=== PATIENT | male | born 1965 | race Caucasian/White ===

== ENCOUNTER → 2018-02-05 09:13 | Outpatient (CLI) | payer MEDICARE, MEDICAID, SELFPAY ==
[2018-02-05 11:28] LABS: Hemoglobin A1C 7.1 % (4.5-6.2)
== END ==
PROVIDERS: PCP Family Medicine; Visit Provider Family Medicine
DX: E11.9 Type 2 diabetes mellitus without complications (principal)
CPT/HCPCS: 36415; 83036

== ENCOUNTER 2018-05-11 10:08 | Outpatient (CLI) | payer MEDICARE, MEDICAID, SELFPAY ==
[2018-05-11 12:18] LABS: Hemoglobin A1C 6.7 % (4.5-6.2)
[2018-05-11 13:41] LABS: COMMENT (LAB VIEW ONLY) 49.01 mg/dL; Microalb ug/mg Crea 3.1 ug/mg Cr
== END 2018-05-11 10:28 ==
PROVIDERS: PCP Family Medicine; Visit Provider Family Medicine
DX: E11.9 Type 2 diabetes mellitus without complications (principal)
CPT/HCPCS: 36415; 82043; 82570; 83036

== ENCOUNTER 2018-11-16 10:49 | Outpatient (CLI) | payer MEDICARE, MEDICAID, SELFPAY | END 2018-11-16 11:09 | PROVIDERS: PCP Family Medicine; Visit Provider Family Medicine | DX: E11.9 Type 2 diabetes mellitus without complications (principal) | CPT/HCPCS: 36415; 83036 ==

== ENCOUNTER 2019-02-09 09:24 | Outpatient (CLI) | payer MEDICARE, MEDICAID, SELFPAY ==
[2019-02-09 10:58] LABS: Hemoglobin A1C 6.8 % (4.5-6.2)
== END 2019-02-09 09:44 ==
PROVIDERS: PCP Family Medicine; Visit Provider Family Medicine
DX: E11.9 Type 2 diabetes mellitus without complications (principal)
CPT/HCPCS: 36415; 83036

== ENCOUNTER 2019-05-13 09:04 | Outpatient (CLI) | payer MEDICARE, MEDICAID, SELFPAY ==
[2019-05-13 12:59] LABS: Anion Gap 9.3 mmol/L (3-11); BUN 12 mg/dL (7-18); CO2 32.7 mmol/L (21.0-32.0); CREATININE 0.79 mg/dL (0.70-1.30); Calcium 9.7 mg/dL (8.5-10.1); Calculated LDL 86 mg/dL; Chloride 104 mmol/L (98-107); Cholesterol 160 mg/dL (50-200); Glucose 152 mg/dL (70-100); HDL Cholesterol 58 mg/dL (40-60); Potassium 4.4 mmol/L (3.5-5.1); Sodium 146 mmol/L (136-145); Triglyceride 83 mg/dL (30-150)
[2019-05-13 14:14] LABS: Hemoglobin A1C 7.8 % (4.5-6.2)
== END 2019-05-13 09:24 ==
PROVIDERS: PCP Family Medicine; Visit Provider Family Medicine
DX: E11.9 Type 2 diabetes mellitus without complications (principal); I10 Essential (primary) hypertension
CPT/HCPCS: 36415; 80048; 80061; 83036

== ENCOUNTER 2020-06-26 03:03 | Outpatient (CLI) | payer MEDICARE, MEDICAID, SELFPAY ==
[2020-06-26 09:49] LABS: HCT 44.4 % (40.0-50.0); MCHC 33.8 % (32.0-36.0); MCV 97.8 fL (80-95); MPV 9.4 fL (8.0-11.0); Platelet Count 215 10^3/uL (130-400); RBC 4.54 10^6/uL (4.36-5.78); RDW 11.8 % (11.8-14.1); RDW-SD 42.6 fL
[2020-06-26 10:01] LABS: Hemoglobin A1C 6.6 % (<5.7)
[2020-06-26 10:25] LABS: ALT 28 U/L (16-63); AST 21 U/L (15-37); Albumin 3.6 g/dL (3.4-5.0); Alkaline Phosphatase 73 U/L (46-116); Anion Gap 6.8 mmol/L (3-11); BUN 15 mg/dL (7-18); Bilirubin, Total 1.5 mg/dL (0.2-1.0); CO2 29.2 mmol/L (21.0-32.0); CREATININE 0.82 mg/dL (0.70-1.30); Calcium 8.9 mg/dL (8.5-10.1); Chloride 104 mmol/L (98-107); Glucose 110 mg/dL (74-106); Potassium 4.4 mmol/L (3.5-5.1); Sodium 140 mmol/L (136-145); Total Protein 6.9 g/dL (6.4-8.2)
[2020-06-26 10:29] LABS: COMMENT (LAB VIEW ONLY) 113.82 mg/dL; Microalb ug/mg Crea 4.5 ug/mg Cr
== END 2020-06-26 03:23 ==
PROVIDERS: PCP Family Medicine; Visit Provider Family Medicine
DX: E11.9 Type 2 diabetes mellitus without complications (principal); Z79.4 Long term (current) use of insulin; F88 Other disorders of psychological development
CPT/HCPCS: 36415; 80053; 85027; 82043; 82570; 83036

== ENCOUNTER 2021-09-06 02:38 | Outpatient (CLI) | payer MEDICARE, MEDICAID, SELFPAY ==
[2021-09-06 08:44] LABS: ALT 24 U/L (16-63); AST 31 U/L (15-37); Albumin 3.4 g/dL (3.4-5.0); Alkaline Phosphatase 84 U/L (46-116); BUN 14 mg/dL (7-18); CREATININE 0.8 mg/dL (0.70-1.30); Calcium 8.8 mg/dL (8.5-10.1); Calculated LDL 52 mg/dL (<100); Chloride 106 mmol/L (98-107); Cholesterol 112 mg/dL (<200); Glucose 90 mg/dL (74-106); HDL Cholesterol 54 mg/dL (40-60); Potassium 4.7 mmol/L (3.5-5.1); Sodium 141 mmol/L (136-145); Total Protein 6.6 g/dL (6.4-8.2); Triglyceride 30 mg/dL (<150)
[2021-09-06 19:51] LABS: PSA, Screening 0.4 ng/mL (0.0-3.5)
== END 2021-09-06 02:39 | disposition home or self-care (01) ==
LOC: LBO 02:38
PROVIDERS: PCP Nurse Practitioner Family; Visit Provider Nurse Practitioner Family
DX: E11.9 Type 2 diabetes mellitus without complications (principal); Z79.4 Long term (current) use of insulin; R39.15 Urgency of urination; Z12.5 Encounter for screening for malignant neoplasm of prostate
CPT/HCPCS: 36415; 80053; 80061; 84153

== ENCOUNTER → 2022-09-05 14:58 | Outpatient (BNVA) | payer MEDICARE, MEDICAID, SELFPAY | PROVIDERS: PCP Nurse Practitioner Family; Referring Provider Nurse Practitioner Family; Visit Provider Physical Therapy Assistant | DX: Z12.11 Encounter for screening for malignant neoplasm of colon (principal); Z86.010 Personal history of colon polyps ==

== ENCOUNTER 2022-09-26 09:20 | Day surgery (SDC) | payer MEDICARE, MEDICAID, SELFPAY ==
--- NOTE | 2022-09-25 20:59 | W.PM.DSUDISC ---
Date of service: 09/26/22 Time of Service: 13:10 Discharge Plan Disposition Patient Disposition: Home Condition: Good Discharge Details Reason For Visit: Colonoscopy Attending Provider: Christopher Begum Primary Care Provider: Silvino Esparza Home Meds and New Rx's Prescriptions: Continued (DME) lancets 28 gauge misc 1 ea Miscellaneous BID Qty: 200 4RF Rx Instructions: One bid Free style lancets. DX: E11.9 metformin 500 mg tablet 1,000 mg PO BID Qty: 360 4RF multivitamin 1 EACH tablet 1 ea PO DAILY cyanocobalamin (vitamin B-12) [Vitamin B-12] 1,000 MCG tablet 1 tab PO DAILY calcium carbonate [Caltrate 600] 600 MG tablet 1 tab PO DAILY ascorbic acid (vitamin C) [Vitamin C] 500 MG tablet 1 tab PO DAILY vitamins A and D 1 EACH capsule 1 cap PO DAILY cholecalciferol (vitamin D3) 1,000 UNIT capsule 1 cap PO DAILY (DME) blood-glucose meter 1 EACH misc 1 ea Miscellaneous DAILY Qty: 1 Rx Instructions: Freestyle Lite meter DIAGNOSIS CODE 250.02 (DME) blood-glucose meter [FreeStyle [place]] Kit See Rx Instructions .ROUTE .MEDSUPPLY Qty: 1 0RF Rx Instructions: Check blood sugar daily (DME) Blood Glucose Test Strip 1 ea Miscellaneous BID Qty: 200 4RF Rx Instructions: FREESTYLE LITE TEST STRIPS One BID (DME) pen needle, diabetic 29 gauge x 1/2 needle 1 ea Miscellaneous DAILY Qty: 100 4RF Rx Instructions: One SC Daily [place] needles . E11.9 fluoxetine [Prozac] 40 mg capsule 40 mg PO DAILY Qty: 90 4RF atorvastatin 20 mg tablet 20 mg PO DAILY Qty: 90 4RF insulin glargine [Lantus Solostar U-100 Insulin] 100 unit/mL (3 mL) insulin pen 70 unit subcut QAM Qty: 15 4RF Discontinued bisacodyl [Dulcolax (bisacodyl)] 5 mg tablet,delayed release (DR/EC) 5 mg PO ONCE Qty: 4 0RF Rx Instructions: Take according to provider's instructions for colonoscopy prep. polyethylene glycol 3350 17 gram/dose powder 17 g PO ONCE Qty: 238 0RF Rx Instructions: To be taken as directed by prescriber's office for colonoscopy prep. Discharge Instructions Instructions: Colorectal Polyps (GEN) Additional Instructions: Tony, we were able to complete your colonoscopy today without any difficulty. Like we talked about in the recovery unit, there were 2 discrete colon polyps that I removed completely. There was also an area that has some more carpeted appearance that I was not able to remove with the colonoscope. However, I did take some biopsies of this. Once I have the pathology report on all of the biopsies and polyps, I will be in touch with regards to what to do next. 1. If tolerated, consume a soft, low fiber diet for 1-2 days. 2[address] Do not drive, drink alcohol, operate machinery, make critical decisions, or do activities that require coordination or balance for 24 hours. 3. Because air was put into your colon during the procedure, expelling air from your rectum (passing gas or farting) is normal. 4. You may not have a bowel movement for 1-3 days because of the colonoscopy prep. This is normal. 5. Go directly to the emergency room if you notice any of the following: Develop chills (warm to touch), or if you have a thermometer and your temperature is above 101 Difficulty breathing or difficultly swallowing Persistent vomiting Severe abdominal pain, other than gas cramps Severe chest pain Black, tarry stools Any bleeding ? exceeding one tablespoon 6. Call your physician if the site where your intravenous was started becomes red, swollen, painful, and warm to touch. 7. Your physician has reviewed your pre-procedure medications. Please continue to take those medications as previously ordered. You will be given specific information/education regarding any changes to your medications before leaving. Activity:: Activity as Tolerated Diet:: As Tolerated Discharge Orders Discharge Orders: Discharge Order (Routine); Ordered 09/25/22 Ordered By: Christopher Begum DS: Diagnosis Discharge Diagnosis (1) Screening for colon cancer: Status: Acute Asessment and Plan: Follow-up with pathology results
--- NOTE | 2022-09-25 21:01 | COLE_ITS ---
Date of service: 09/26/22 Time of Service: 12:42 Colonoscopy Report Date of procedure: 09/26/22 Pre-op diagnosis general: Screening colonoscopy Post-op diagnosis procedure note: other (Cecal polyps) Procedure: Colonoscopy with polypectomy Surgeon: Christopher Begum Anesthesia Type: General:No Airway Estimated blood loss (mL): 15 Pathology: other (Cecal polyps x2, cecal biopsies) Complications: None Disposition: same day Indications: Tony is a 57 year old man who had a high risk adenoma on a previous colonsoscopy. He is her in follow up for another screening colonoscopy Prep: Miralax/Dulcolax Procedure Start Time: 11:52 Procedure End Time: 12:26 Retraction Time: 16 Findings: Cecal polyps x2, polypoid tissue along the ileocecal valve Procedure Description: After the induction of monitored anesthetic care, and with the patient in left lateral decubitus position, I began by performing an external anorectal exam.? Perineum and skin were normal, as was the anal verge.? There was no not evidence of external hemorrhoids.? Next, I performed a digital rectal exam.? I did appreciate any abnormal findings.? Next, I advanced a colonoscope into the rectal vault.? I performed retroflexion.? This appeared normal.? Using insu fflation, I then advanced the colonoscope beyond the rectal folds and into the sigmoid colon before advancing towards the cecum.? The quality of the prep was adequate.? The scope was noted to be in the cecum by identification of the ileocecal valve and appendiceal orifice.? There were 2 cecal polyps that were sessile in nature. One was approximately 0.75 cm in size. This was removed with cold snare. There was minimal bleeding. The other was about 0.25 cm. This was removed with cold forceps polypectomy. I then began withdrawing the colonoscope using repeated irrigation as necessary for full evaluation of the colonic mucosa. There was also a slightly raised, sessile appearing polypoid tissue along the ileocecal valve. I would estimated about 1.5 to 2 cm in its longest dimension. Based on his geometry and location, I not capable of removing this colonoscopically. I did perform cold forceps biopsy of the area. Once the scope was withdrawn to the level of the rectum, great care was taken to examine portions of the rectal folds.? Finally, the scope was withdrawn and the patient was brought to the same-day surgery recovery unit as the anesthetic wore off. ?The findings and instructions were shared with the patient prior to discharge. In simple language, I explained that 2 of the polyps were removed completely, but I was uncomfortable attempting removal of the larger polypoid tissue colonoscopically. I will follow-up on the pathology. If this is in fact a polyp, I would recommend referral to an advanced endoscopist for attempted colonoscopic retrieval, versus a right hemicolectomy. Pathology is more consistent with benign lymphoid tissue, I think this could be surveilled with colonoscopy.
[2022-09-26 10:17] VITALS: BP 118/57; PULSE 64; RESP 20; TEMP 36.3; O2SAT 100
[2022-09-26] MEDS: Lactated Ringers 1,000 ML 80 ML IV (10:45)
--- NOTE | 2022-09-26 11:30 | W.ANESPRE ---
General Info Date of Service Date Performed: 09/26/22 Height: 5 ft 7 in Weight: 103 kg Body Mass Index (BMI): 35.5 Surgical Procedure: Operation Date: 09/26/22 10:35 Proposed Procedure Side Surgeon jon Begum MD Meds Allergies and Home Medications Allergies Allergy/AdvReac Type Severity Reaction Status Date / Time haloperidol AdvReac Intermediate NAUSEA AND Verified 09/26/22 10:31 VOMITING Home Medication Medication Instructions Recorded ascorbic acid (vitamin C) 500 mg 1 tab PO DAILY 11/02/12 tablet (Vitamin C) calcium carbonate 600 mg calcium 1 tab PO DAILY 11/02/12 (1,500 mg) tablet (Caltrate 600) cholecalciferol (vitamin D3) 25 1 cap PO DAILY 11/02/12 mcg (1,000 unit) capsule cyanocobalamin (vitamin B-12) 1 tab PO DAILY 11/02/12 1,000 mcg tablet (Vitamin B-12) multivitamin 1 ea PO DAILY 11/02/12 vitamins A and D 1 cap PO DAILY 11/02/12 blood-glucose meter #1 ea 08/02/13 blood-glucose meter (FreeStyle #1 ea 12/27/19 [place] kit) blood sugar diagnostic (Blood #200 strips 10/29/21 Glucose Test strips) pen needle, diabetic 29 gauge x #100 ea 11/29/21 1/2 fluoxetine 40 mg capsule (Prozac) 40 mg PO DAILY #90 tab-caps 12/17/21 metformin 500 mg tablet 1,000 mg PO BID #360 tab-caps 01/03/22 lancets 28 gauge #200 ea 04/05/22 atorvastatin 20 mg tablet 20 mg PO DAILY #90 tabs 09/02/22 insulin glargine 100 unit/mL (3 70 unit (0.7 mL) subcut QAM 09/16/22 mL) subcutaneous pen (Lantus Diabetes mellitus #15 mL Solostar U-100 Insulin) Current Visit Medications: Current Medications Generic Name Dose Route Start Last Admin Trade Name Freq PRN Reason Stop Dose Admin Hyoscyamine Sulfate 0.125 mg 09/25/22 21:02 Hyoscyamine 0.125 Mg Sl/Oral/Chew SL DIRECTED PRN Ringer's Solution 1,000 mls @ 80 mls/hr 09/26/22 06:00 09/26/22 10:45 IV 10/25/22 23:59 80 mls/hr INFUSION CYNTHIA Administration IV Miscellaneous Supplies 1 each 09/26/22 06:00 Iv Access IV 10/25/22 23:59 DIRECTED CYNTHIA Ondansetron HCl 4 mg 09/25/22 21:02 Ondansetron 4 Mg/2 Ml Vial IVP Q4H PRN PRN Nausea / Vomiting Sodium Chloride 0 ml 09/26/22 06:00 Normal Saline Flush 10 Ml Syr IV 10/25/22 23:59 PRN PRN Sodium Chloride 0 ml 09/26/22 06:00 Normal Saline 10 Ml Vial IJ 10/25/22 23:59 DIRECTED PRN Sterile Water 0 ml 09/26/22 06:00 Water,Injection,Sterile 10 Ml Vial IJ 10/25/22 23:59 DIRECTED PRN PFSH Active Problems Active Problems: Problem Status Onset Code Screening for colon cancer Z12.11 COVID U07.1 Cognitive developmental delay Overgrown toenails L60.2 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 sister: No seizures in 30+ years Surgical History Surgical History colonoscopy (01/15/16) Tobacco Smoking/Tobacco Use Status: Never Passive smoking exposure: Yes Second hand exposure: Yes Alcohol Alcohol Intake: never Substance Use Substance use: Never Substance use type: does not use Vital Signs and Lab Results Vital Signs Most Recent Vital Signs in EMR: Most Recent Vital Signs Temp Pulse Resp BP Pulse Ox 36.3 C L 64 20 118/57 L 100 09/26/22 10:17 09/26/22 10:17 09/26/22 10:17 09/26/22 10:17 09/26/22 10:17 Point of Care Results Point of Care Results: Finger Stick Blood Glucose 95 09/26/22 10:35 Lab Results Blood Type / Crossmatch: No Data to Display Complete Blood Count: No Data to Display Complete Metabolic Panel: No Data to Display Liver Function Panel: No Data to Display Coagulation Panel: No Data to Display Cardiac Panel: No Data to Display Arterial Blood Gas: No Data to Display Venous Blood Gas: No Data to Display Pancreas Panel: No Data to Display Thyroid Panel: No Data to Display Infectious Disease: No Data to Display Blood Cultures: No Data to Display Toxicology Panel: No Data to Display Anesthesia Assessment and Plan Anesthesia History Personal History: No History of Anesthesia Complications Family History: Family History Unknown Exercise Tolerance Exercise Tolerance: Metabolic Equivalents>4 Pertinent Negatives Pertinent Negatives: No Symptoms of GERD and No Major Cardiovascular Symptoms or Complaints Cardiac & Pulmonary Exam Cardiac Exam: Normal S1/S2 Heart Sounds Pulmonary Exam: Clear Bilateral Breath Sounds Implantable Cardiac Device Does patient have a Pacemaker or an ICD?: No Airway Exam Known Difficult Airway: No Mallampati Class: 2 Mouth Opening: Normal (> 3cm) Thyromental Distance: Greater than 3 cm Neck Range of Motion: Full ROM Neck Circumference: Normal Teeth Condition: Generalized Poor Dentition ASA Classification ASA Score: ASA 3 Emergency Case?: No NPO Status NPO Status: NPO Clears >2 hours, Solids >8 hours Anesthesia Plan Resuscitation Status: Full Code Anesthesia Technique: General Anesthesia Airway Planned: Natural Airway Monitors Used: Standard Monitors
[2022-09-26 11:32] VITALS: BMI 35.5
--- NOTE | 2022-09-26 12:05 | BOWEL_PTH ---
PATIENT: Tony Mcgarry LOC: [facility] U#:[id number] AGE/SX: 57/M ROOM: RE09/26/[address]: Christopher Begum MD : 1965 BED: DIS: 09/26/2022 SPEC #: [id number] RECD: 09/26/22 13:22 STATUS: BRET REQ #: [id number] CYNTHIA: 09/26/22 12:[address]: Christopher Begum DEPT: Surgical Specimen RECD BY: Neeta Aranda ENTERED: 09/26/22 13:23 SP TYPE: Bowel OTHR DR: Silvino Esparza, AYLEEN Tissues: 1 - BIOPSY BOWEL Procedures: GROSS AND MICRO LEVEL 4 Comments: [id number]
[2022-09-26 12:30] VITALS: BP 96/51; PULSE 62; RESP 16; TEMP 36.5; O2SAT 99
[2022-09-26 12:54] VITALS: BP 105/57; PULSE 68; RESP 18; TEMP 36.5; O2SAT 99
--- NOTE | 2022-09-26 13:11 | W.ANESPOSTOP ---
Postoperative Evaluation Date, Time and Location Date Performed: 09/26/22 Time Performed: 13:11 Patient Location: Day Surgery Unit Vital Signs Most Recent Imported Vital Signs: Most Recent Vital Signs Temp Pulse Resp BP Pulse Ox 36.5 C 68 18 105/57 L 99 09/26/22 12:54 09/26/22 12:54 09/26/22 12:54 09/26/22 12:54 09/26/22 12:54 Pain Score Most Recent Pain Score: Most Recent Pain Score Pain Level 0 09/26/22 12:54 Assessment Mental Status: Awake (Alert & Oriented to Patient Baseline) Airway and Respiratory Function: Patent airway with normal (patient baseline) respiratory exam Cardiovascular Function: Hemodynamically Stable Hydration Status: Adequately Hydrated Nausea & Vomiting: No Nausea or Vomiting Pain: Pt. Denies Any Pain Peripheral Nerve Block: Patient did not receive a nerve block
== END 2022-09-26 13:52 | disposition home or self-care (01) ==
PROVIDERS: PCP Nurse Practitioner Family; Visit Provider Surgery
PROC: 0DJD8ZZ Inspection of Lower Intestinal Tract, Via Natural or Artificial Opening Endoscopic (ICD-10-PCS; CPT 45378; principal; 2022-09-26 10:30)
DX: Z12.11 Encounter for screening for malignant neoplasm of colon (principal); K63.5 Polyp of colon; Z86.010 Personal history of colon polyps
CPT/HCPCS: 45380; 88305; J2704

== ENCOUNTER 2024-05-18 10:51 | Outpatient (CLI) | payer MEDICARE, MEDICAID, SELFPAY ==
--- NOTE | 2024-05-18 15:56 | DI.RAD_ITS ---
Exam(s) XR KNEE RT 3V AP,LAT,MIGUELINA EXAM: XR KNEE RT 3V AP,LAT,MIGUELINA CLINICAL HISTORY: Worsening rt knee pain, M25.561. TECHNIQUE: 2D digital imaging was performed. Three views. COMPARISON: No exams were available for comparison FINDINGS: Exam is limited by overlying clothing. BONES: No acute fracture is present. No bony destructive lesion is seen. JOINTS: The knee is normally aligned. Question of a joint effusion, the area is obscured by overlying clothing. Narrowing of the patellofemoral joint space and mild periarticular spurring. Femoral tib ial joint spaces are maintained. SOFT TISSUE: Normal. IMPRESSION: Degenerative changes of the patellofemoral joint. Question of joint effusion. DATA REPOSITORY: RADIATION DOSE DELIVERED:
== END 2024-05-18 11:11 ==
LOC: DI 10:52
PROVIDERS: PCP Nurse Practitioner Family; Visit Provider Nurse Practitioner Family
DX: M17.12 Unilateral primary osteoarthritis, left knee (principal)
CPT/HCPCS: 73562

== ENCOUNTER 2024-05-19 02:27 | Outpatient (CLI) | payer MEDICARE, MEDICAID, SELFPAY ==
[2024-05-19 12:24] LABS: Calculated LDL 46 mg/dL (<100); Cholesterol 104 mg/dL (<200); HDL Cholesterol 53 mg/dL (40-60); Triglyceride 25 mg/dL (<150)
[2024-05-19 12:27] LABS: Hemoglobin A1C 5.3 % (<5.7)
[2024-05-19 18:25] LABS: PSA, Screening 0.3 ng/mL (<=3.5)
== END 2024-05-19 02:28 | disposition home or self-care (01) ==
PROVIDERS: PCP Nurse Practitioner Family; Visit Provider Nurse Practitioner Family
DX: Z12.5 Encounter for screening for malignant neoplasm of prostate (principal); Z13.1 Encounter for screening for diabetes mellitus; E11.9 Type 2 diabetes mellitus without complications; Z79.4 Long term (current) use of insulin; E78.5 Hyperlipidemia, unspecified; Z13.220 Encounter for screening for lipoid disorders
CPT/HCPCS: 36415; 80061; 84153; 83036

== ENCOUNTER → 2024-06-14 14:40 | Outpatient (BNVA) | payer MEDICARE, MEDICAID, SELFPAY | PROVIDERS: PCP Nurse Practitioner Family; Referring Provider Nurse Practitioner Family | DX: M17.11 Unilateral primary osteoarthritis, right knee (principal) | CPT/HCPCS: 20610; 99213; J1010 ==

== ENCOUNTER 2024-08-28 13:07 | Emergency (ER) | payer MEDICARE, MEDICAID, SELFPAY ==
--- NOTE | 2024-08-28 13:15 | DI.CT_ITS ---
Exam(s) CT HEAD WO EXAM: CT HEAD WO CLINICAL HISTORY: Fall. TECHNIQUE: Imaging Protocol: Axial computed tomography images with coronal and sagittal reformatted images were created and reviewed COMPARISON: No exams were available for comparison FINDINGS: Ventricles and Extra axial spaces: Normal in size and morphology for the patient's age. Hemorrhage: None. Cerebral parenchyma: No evidence of acute infarct or mass. Midline shift: None. Brainstem/Cerebellum: Normal. Calvarium: Normal. Visualized Paranasal sinuses:Mucous retention at the right maxillary sinus. Mastoids: Clear. Soft Tissues: Unremarkable. ORBITS: Unremarkable. PITUITARY: Not enlarged. IMPRESSION: No acute intracranial process. RADIATION DOSE DELIVERED: Total DLP DATA REPOSITORY: All CT scans at this facility are submitted to the National Radiology Data Registry (NRDR) Dose Index Registry (DIR) with the [employer] ([employer]). RADIATION OPTIMIZATION: All CT scans at this facility use at least one of these dose optimization te chniques: automated exposure control; mA and/or kV adjustment per patient size (includes targeted exa ms where dose is matched to clinical indication); or iterative reconstruction.
[2024-08-28 13:22] VITALS: BP 121/66; PULSE 66; RESP 18; TEMP 36.9
--- NOTE | 2024-08-28 13:37 | DI.RAD_ITS ---
Exam(s) XR HAND LT COMPLETE EXAM: XR HAND LT COMPLETE CLINICAL HISTORY: Left hand pain. TECHNIQUE: 2D digital imaging was performed. Three views. COMPARISON: No exams were available for comparison FINDINGS: BONES: No acute fracture is present. No bony destructive lesion is seen. JOINTS: No dislocation present. Advanced degenerative changes at the 1st carpal metacarpal joint. [id number] degenerative changes of the interphalangeal joints of the fingers. SOFT TISSUE: Normal. IMPRESSION: Degenerative changes greatest of the 1st carpometacarpal joint. No acute abnormality. DATA REPOSITORY: RADIATION DOSE DELIVERED:
--- NOTE | 2024-08-28 13:38 | ED.GENADUL_ITS ---
Discharge Plan Disposition Patient Disposition: Home Discharge Details Clinical Impression: Hx of falling, Traumatic ecchymosis of forehead, Left hand pain Primary Care Provider: Silvino Esparza ED Provider: Cipriano Grigsby Home Meds and New Rx's Prescriptions: Continued (DME) lancets 28 gauge misc 1 ea Miscellaneous BID Qty: 200 4RF Rx Instructions: One bid Free style lancets. DX: E11.9 (DME) Blood Glucose Test Strip 1 ea Miscellaneous BID Qty: 200 4RF Rx Instructions: FREESTYLE LITE TEST STRIPS One BID multivitamin 1 EACH tablet 1 ea PO DAILY cyanocobalamin (vitamin B-12) [Vitamin B-12] 1,000 MCG tablet 1 tab PO DAILY calcium carbonate [Caltrate 600] 600 MG tablet 1 tab PO DAILY ascorbic acid (vitamin C) [Vitamin C] 500 MG tablet 1 tab PO DAILY vitamins A and D 1 EACH capsule 1 cap PO DAILY cholecalciferol (vitamin D3) 1,000 UNIT capsule 1 cap PO DAILY (DME) blood-glucose meter [FreeStyle [place]] Kit See Rx Instructions .ROUTE .MEDSUPPLY Qty: 1 0RF Rx Instructions: Check blood sugar daily atorvastatin 20 mg tablet 20 mg PO DAILY Qty: 90 4RF (DME) pen needle, diabetic 29 gauge x 1/2 needle 1 ea Miscellaneous DAILY Qty: 100 4RF Rx Instructions: One SC Daily [place] needles . E11.9 metformin 500 mg tablet 1,000 mg PO BID Qty: 360 4RF fluoxetine [Prozac] 40 mg capsule 40 mg PO DAILY Qty: 90 4RF insulin glargine [Lantus Solostar U-100 Insulin] 100 unit/mL (3 mL) insulin pen 50 unit subcut QAM Qty: 45 3RF Discharge Instructions Additional Instructions: You are seen in the emergency department following a fall. Your CAT scan showed no sign of any bleeding in your head. Your x-ray showed no sign of any fractures in your hand. As we discussed if you develop any episodes of lig htheadedness or if you pass out please return to emergency department. For your pain please take medications as follows: 1. Take acetaminophen (Tylenol), 1,000 mg (two 500 mg tabs) every 6 hours Discharge Data Discharge Date/Time-TO BE ENTERED AT DEPARTURE: 08/28/24 14:48 HPI General Date/Time Provider Initiated Documentation: 08/28/24 13:22 . HPI Narrative: MDM Primary survey intact. Reassuring shock index. On secondary survey has left forehead ecchymosis and left hand tenderness for which he will undergo CT and x- ray respectively. Not intoxicated no distracting injury based on Nexus criteria in the absence of cervical spinal tenderness will defer CT cervical spine. Patient did not have a documented oxygen saturation. Please see nursing note as patient was in no respiratory distress and saturation was reportedly within normal limits. And equal breath sounds and no trauma to chest so not concern for pneumothorax. Bilateral knees with superficial abrasions but no lacerations and no indication for primary closure not tetanus immunization. No pain out of proportion to suggest necrotizing soft tissue infection. No preceding syncope to suggest benefit from ECG. Patient had reassuring CT scan and x-rays. Given that he was ambulatory and had no limitations in the range of motion in his knees I did not feel he required knee x-rays. I treated him with 1 g of acetaminophen. HPI This is a [id number] 59-year-old male with a history of obesity developmental delay and intentional tremor right emergency department the sister via private vehicle following a fall. Patient reportedly fell at 1130 this morning after stepping in a pothole and losing his balance. He had stepped left side of his forehead and his left hand. He denies any preceding chest pain nausea vomiting and shortness of breath. He has abrasions to his knees. He denies neck pain. Exam General: Well-appearing in no acute distress speaking in complete sentences. Head: Normocephalic, on the left side of the patient's forehead there is an approximately 2 x 2 cm ecchymotic area. Eye:[Pupils equal, round reactive to light.] Extraocular eye movements intact. No conjunctival injection. No scleral icterus. Ear, nose, mouth, throat: Grossly normal inspection. Normal voice, handling secretions normally. No hemotympanum bilaterally. No septal hematoma. Neck: Trachea midline. No midline cervical spinal tenderness. Back: No midline thoracic nor lumbar spinal tenderness. No step-offs. No deformities. Cardiovascular: Well-perfused distal extremities. Respiratory: Nonlabored respiration. Clear equal breath sounds bilaterally. Gastrointestinal: Nondistended abdomen. Musculoskeletal: Right upper extremity nontender full range of motion. Left upper extremity full range of motion. Mild tenderness over the dorsal surface of the MCP joints of the little and ring finger. Full range of motion wrist forearm elbow shoulder. Bilateral lower extremities full range of motion full-strength. Bilateral knee abrasions superficial less than 3 cm? in area. Skin: Normal for age and race, grossly normal temperature and turgor. No acute rash. Neurologic: Alert and appropriate, no apparent acute deficits. GCS 15. Psychiatric: Mood and manner are appropriate. Grooming and personal hygiene are appropriate. Related Data Home Medications ?Medication ?Instructions ?Recorded ?Confirmed ascorbic acid (vitamin C) 500 mg 1 tab PO DAILY 11/02/12 08/28/24 tablet (Vitamin C) calcium carbonate (Caltrate 600) 1 tab PO DAILY 11/02/12 08/28/24 cholecalciferol (vitamin D3) 25 1 cap PO DAILY 11/02/12 08/28/24 mcg (1,000 unit) capsule cyanocobalamin (vitamin B-12) 1 tab PO DAILY 11/02/12 08/28/24 1,000 mcg tablet (Vitamin B-12) multivitamin 1 ea PO DAILY 11/02/12 08/28/24 vitamins A and D 1 cap PO DAILY 11/02/12 08/28/24 blood-glucose meter (FreeStyle #1 ea 12/27/19 08/26/24 [place] kit) lancets 28 gauge #200 ea 04/05/22 08/26/24 atorvastatin 20 mg tablet 20 mg PO DAILY #90 tabs 12/03/23 08/28/24 pen needle, diabetic 29 gauge x #100 ea 12/03/23 08/26/24 1/2 metformin 500 mg tablet 1,000 mg (2 x 500 mg) PO BID #360 03/24/24 08/28/24 tab-caps blood sugar diagnostic (Blood #200 strips 05/17/24 08/26/24 Glucose Test strips) fluoxetine 40 mg capsule (Prozac) 40 mg PO DAILY #90 tab-caps 06/07/24 08/28/24 insulin glargine 100 unit/mL (3 50 unit (0.5 mL) subcut QAM #45 mL 08/26/24 08/28/24 mL) subcutaneous pen (Lantus Solostar U-100 Insulin) Previous Rx's ?Medication ?Instructions ?Recorded blood-glucose meter (FreeStyle #1 ea 12/27/19 [place] kit) lancets 28 gauge #200 ea 04/05/22 atorvastatin 20 mg tablet 20 mg PO DAILY #90 tabs 12/03/23 pen needle, diabetic 29 gauge x #100 ea 12/03/23 1 metformin 500 mg tablet 1,000 mg (2 x 500 mg) PO BID #360 03/24/24 tab-caps blood sugar diagnostic (Blood #200 strips 05/17/24 Glucose Test strips) fluoxetine 40 mg capsule (Prozac) 40 mg PO DAILY #90 tab-caps 06/07/24 insulin glargine 100 unit/mL (3 50 unit (0.5 mL) subcut QAM #45 mL 08/26/24 mL) subcutaneous pen (Lantus Solostar U-100 Insulin) Allergies Allergy/AdvReac Type Severity Reaction Status Date / Time haloperidol AdvReac Intermediate NAUSEA AND Verified 08/28/24 13:28 VOMITING General Stated Complaint: HeadInjury FARRAH: 4 Course Vital Signs Vital signs: Vital Signs Temperature 36.9 C 08/28/24 13:22 Pulse 66 08/28/24 13:22 Respiratory Rate 18 08/28/24 13:22 Blood Pressure 121/66 08/28/24 13:22 Temperature 36.9 C 08/28/24 13:22 Temperature Source Oral 08/28/24 13:22 Pulse 66 08/28/24 13:22 Respiratory Rate 18 08/28/24 13:22 Blood Pressure 121/66 08/28/24 13:22 Blood Pressure Position Sitting 08/28/24 13:22 Oxygen Delivery Method Room Air 08/28/24 13:22 Oxygen Flow Rate 0 08/28/24 13:22 Pain Level 3 08/28/24 13:22 Medical Decision Making Quality:SDOH Health Related Social Needs: No Data to Display PFSH All Active Problems (Updated 08/28/24 @ 14:31 by Cipriano Grigsby MD) Left hand pain (Acute) Traumatic ecchymosis of forehead (Acute) Hx of falling (Acute) Urinary incontinence (Acute) Degenerative joint disease of right knee (Chronic) DEPO MEDROL 06/14/24 Diabetic neuropathy (Acute) Nail dystrophy (Acute) Cognitive developmental delay (Acute) Postural kyphosis (Acute) Tubular adenoma (Acute 08/2022) Obsessive-compulsive disorder (Acute) atypical phychosis Obesity (Acute) Intention tremor (Acute) Epilepsy (Acute) complex partial seizures Diabetes mellitus (Acute 11/03/12) Depressive disorder (Acute) Other specified delay in development (Acute) Medical History COVID Intention tremor Surgical History History of colonoscopy (~08/2022) colonoscopy (01/15/16) Family History Father Stroke Grandfather , 70 Myocardial infarction Maternal Uncle , 50 Myocardial infarction Mother Colon cancer Social History Smoking/Tobacco Use Status: Never Second Hand Exposure: Yes Smoking risk assessment performed?: Yes Alcohol Intake: never Drug use: Never Substance use type: does not use Adopted: No Caregiver/Support person: Yes Foster care: No Household members: none Housing: house Communication Needs: None Do you need help understanding health information?: Always Pets and animals: No Sexually active: No Do you think of yourself as: straight/heterosexual Current gender identity: male What is your relationship status?: never How often do you talk on the phone with friends or family?: decline to answer How often do you get together with friends or relatives?: decline to answer How often do you attend anabaptist or sikh services?: decline to answer Do you belong to any clubs or organized social groups?: decline to answer Panel score (0-1 are the most socially isolated patients): 0 What type of physical activity do you participate in: walking Duration: 30-45 minutes/day Frequency: daily Special gaston needs: No Agree to transfusion: Yes Additional [facility] history[facility]
--- NOTE | 2024-08-28 13:59 | DI.VRAD_ITS ---
PROCEDURE INFORMATION: Exam: XR Left Hand Exam date and time: 08/28/2024 1:54 PM Age: 59 years old Clinical indication: Injury or trauma; Fall; Blunt trauma (contusions or hematomas); Hand; Left TECHNIQUE: Imaging protocol: Radiologic exam of the left hand. Views: 3 or more views. COMPARISON: No relevant prior studies available. FINDINGS: Bones/joints: Severe degenerative disease 1st carpometacarpal joint. Scattered [id number] degenerative disease of the interphalangeal joints. Soft tissues: Normal. IMPRESSION: No acute fracture or dislocation. Dictated and Authenticated by: Jay Vargas MD. Orderin Seb Cota MD
--- NOTE | 2024-08-28 13:59 | DI.VRAD_ITS ---
PROCEDURE INFORMATION: Exam: CT Head Without Contrast Exam date and time: 08/28/2024 1:44 PM Age: 59 years old Clinical indication: Injury or trauma; Fall TECHNIQUE: Imaging protocol: Computed tomography of the head without contrast. COMPARISON: No relevant prior studies available. FINDINGS: Brain: Normal. No hemorrhage. Unremarkable white matter. No mass effect. Cerebral ventricles: No ventriculomegaly. Paranasal sinuses: Mucosal disease of the right maxillary sinus. Mastoid air cells: Visualized mastoid air cells are well aerated. Orbital cavities: Hyperdensities of bilateral sclera, age-related. Pharynx: Bilateral palatine tonsil calcifications. Bones: Unremarkable. No acute fracture. Soft tissues: Unremarkable. IMPRESSION: No acute intracranial posttraumatic changes. Dictated and Authenticated by: Jay Vargas MD. Orderin Seb Cota MD
[2024-08-28] MEDS: Acetaminophen 500 MG TAB 1000 MG PO (14:45)
== END 2024-08-28 14:48 | disposition home or self-care (01) ==
PROVIDERS: Emergency Provider Emergency Medicine; PCP Nurse Practitioner Family
DX: S00.83XA Contusion of other part of head, initial encounter (principal); M79.641 Pain in right hand; E11.9 Type 2 diabetes mellitus without complications; Z79.4 Long term (current) use of insulin; W01.0XXA Fall on same level from slipping, tripping and stumbling without subsequent striking against object, initial encounter; Y93.01 Activity, walking, marching and hiking; Y92.414 Local residential or business street as the place of occurrence of the external cause
CPT/HCPCS: 99284; 70450; 73130

== ENCOUNTER → 2024-12-23 14:30 | Outpatient (BNVA) | payer MEDICARE, MEDICAID, SELFPAY | PROVIDERS: PCP Nurse Practitioner Family; Referring Provider Nurse Practitioner Family; Visit Provider Physician Assistant | DX: M17.11 Unilateral primary osteoarthritis, right knee (principal) | CPT/HCPCS: 20610; J1010 ==

== ENCOUNTER → 2025-04-21 14:28 | Outpatient (BNVA) | payer MEDICARE, MEDICAID, SELFPAY | PROVIDERS: PCP Nurse Practitioner Family; Referring Provider Nurse Practitioner Family; Visit Provider Physician Assistant | DX: M17.11 Unilateral primary osteoarthritis, right knee (principal) | CPT/HCPCS: 20610; J1010 ==